=== PATIENT | female | born 1990 | race Caucasian/White ===

== ENCOUNTER 2021-12-26 15:22 | Outpatient (CLI) | payer OTHER, SELFPAY ==
[2021-12-27 09:12] LABS: HIV - WCH Non-Reactive (Nonreactive); Syphilis Antibodies Non-reactive
[2021-12-28 14:08] LABS: HSV 2 IgG 5.89 index (0.00-0.90)
[2021-12-29 00:07] LABS: Chlamydia By Nucleic Acid AMP Negative (Negative)
[2021-12-29 18:37] LABS: Gonococcus By Nucleic Acid AMP Negative (Negative)
[2022-01-01 12:32] LABS: HPV Reflexed? NOT INDICATED
== END 2021-12-26 23:59 | disposition home or self-care (01) ==
PROVIDERS: PCP Nurse Practitioner Primary Care; Referring Provider Nurse Practitioner Women's Health; Visit Provider Nurse Practitioner Women's Health
DX: Z20.2 Contact with and (suspected) exposure to infections with a predominantly sexual mode of transmission (principal); Z12.4 Encounter for screening for malignant neoplasm of cervix
CPT/HCPCS: 36415; 86695; 86696; 86703; 86780; 87491; 87591; 88175; G0145

== ENCOUNTER → 2025-04-08 | Outpatient (CLI) | payer OTHER, SELFPAY ==
[2025-04-14 12:09] LABS: Cotinine Screen Blood <1.0 ng/mL (.)
== END | disposition home or self-care (01) ==
PROVIDERS: PCP Nurse Practitioner Primary Care; Referring Provider Registered Nurse; Visit Provider Registered Nurse
DX: Z00.00 Encounter for general adult medical examination without abnormal findings (principal)
CPT/HCPCS: 80323; G0480

== ENCOUNTER → 2025-07-21 | Outpatient (CLI) | payer OTHER, SELFPAY ==
--- OUTSIDE RECORDS SUMMARY | 2025-07-21 16:34 | XMS RPT_ITS | CCD ---
Author Organization [facility] Care Team Providers Care Manager Information Name Role Phone LIS CLINICAL DIETETIC TECHNICIAN-BLUEPRINT ENGINEER, TEQUILA Primary Care Physician SARITHA CHASE DO Attending Unavailable BALTES CLINICAL DIETETIC TECHNICIAN-BLUEPRINT ENGINEER, TEQUILA Primary Care Unavailabl e AMANDA VARMA DO Attending Unavailable BALTES CLINICAL DIETETIC TECHNICIAN-BLUEPRINT ENGINEER, TEQUILA Primary Care Unavailabl e BALTES CLINICAL DIETETIC TECHNICIAN-BLUEPRINT ENGINEER, TEQUILA Primary Care Unavailabl e AMANDA VARMA DO Attending Unavailable Lis CONTRACT COORDINATOR-C, Tequila Primary Care Provider [phone] Anastacio CONTRACT COORDINATOR-C, Jack Attending Provider [phone] Anastacio CONTRACT COORDINATOR-CJack Referring Provider BGTES CLINICAL DIETETIC TECHNICIAN-ABIGAIL, TEQUILA Attending Unavailabl e BALTES CLINICAL DIETETIC TECHNICIAN-BLUEPRINT ENGINEER, TEQUILA Primary Care Unavailleif e Tuyet CONTRACT COORDINATORElizabeth Attending Unavailable Baltes CONTRACT COORDINATOR, Tequila Primary Care Unavailable Baltes CONTRACT COORDINATOR, Tequila Referring Unavailable Jack Chaves Attending Unavailable Jack Chaves Referring Unavailable Lis CONTRACT COORDINATOR, Tequila Primary Care Unavailable Assessment, Health Risk Attending Unavaila ble Lis CONTRACT COORDINATOR, Tequila Primary Care Unavailable Allergies Allergy Classification Reported Allergen(s) Allergy Type Date of Onset Reaction(s) Facility (4 sources) Amoxicillin; Translations: [amoxicillin] Drug Allergy 2 [facility] (3 sources) Sulfamethoxazole / Trimethoprim; Translations: [sulfamethoxazole-tr imethoprim] Drug Allergy [facility] (1 source) Sulfamethoxazole Drug Allergy 2 [facility] (1 source) Trimethoprim Drug Allergy 2 [facility] (1 source) Amoxicillin Drug Allergy 2 [facility] (1 source) Sulfamethoxazole Drug Allergy 2 [facility] (1 source) Trimethoprim Drug Allergy 2 [facility] Medications Current Medications Medication Drug Class(es) Dates Sig (Normalized) Sig (Original) acetaminophen 500 mg oral tablet (1 source) Start: 07-17-2024 acetaminophen 500 mg oral tablet Dose : 1,000 mg = 2 tab(s), Oral, TID, PRN pain or fever, 0 Refill(s) Start Date: 07/17/24 Status: Ordered Medication Dispense Status: Completed Total Allowed Fills: 1 Fills Dispensed: 0 acetaminophen 250 mg / aspirin 250 mg / caffeine 65 mg oral tablet (1 source) Platelet Aggregation Inhibitor, Nonsteroidal Anti-inflammatory Drug, Central Nervous System Stimulant, Methylxanthine Start: 07-17-2024 take 1 tablet by mouth every six hours as needed for headache Excedrin Extra Strength oral tab (250/250/65) Dose = 1 tab(s), Oral, q6h, PRN for headache/fever, 0 Refill(s) Start Date: 07/17/24 Status: Ordered Medication Dispense Status: Completed Total Allowed Fills: 1 Fills Dispensed: 0 acetaminophen 325 mg / oxyCODONE hydrochloride 5 mg oral tablet (1 source) Opioid Agonist Start: 06-09-2023 End: 06-14-2023 take 1 tablet by mouth every four hours as needed for pain Percocet 5 mg-325 mg oral tablet Dose = 1 tab(s), Oral, q4h, PRN for pain, X 5 day(s), # 30 tab(s), 0 Refill(s), Wrist fracture, right, 61.4 Start Date: 06/09/23 Stop Date: 06/14/23 Status: Ordered Multivitamin With Minerals (Hair,Skin And Nails) tablet (1 source) Start: 12-26-2021 Multivitamin With Minerals (Hair,Skin And Nails) tablet Active 1 {tbl} PO DAILY December 26, 2021 12:00am SUMAtriptan 50 mg oral tablet (3 sources) Serotonin-1b and Serotonin-1d Receptor Agonist Start: 12-26-2021 take 1 tablet by mouth every two hours Sumatriptan Succinate (Imitrex) 50 mg tablet Active 0 PO .COMPLEX December 26, 2021 12:00am take 1 tab at onset of headache; if no relief may repeat 1 tab after at least 2 hrs; max = 4 tabs/24 hr PO Start: 06-03-2019 take 1 tablet by mouth once RODRÍGUEZ MAtriptan 50 mg oral tablet TAKE 1 TABLET BY MOUTH ONCE Start Date: 06/03/19 Status: Ordered Problems Problem Classification Problem Date Documented Da te Episodic/Chronic Anxiety disorders (1 source) Anxiety 05-26-2025 Chronic Asthma (3 sources) Asthma 04-23-2019 Chronic Esophageal disorders (3 sources) Acid reflux 04-23-2019 Chronic Fracture of upper limb (1 source) Closed fracture of carpal bone; Translations: [Fracture of unspecified carpal bone, right wrist, initial encounter for closed fracture] Onset: 06-09-2023 Episodic Headache; including migraine (3 sources) Migraine 04-23-2019 Chronic Mood disorders (1 source) Major depressive disorder 05-26-2025 Chronic Results Test Name Value Interpretation Reference Range Facility LABORATORYOrdered By: SYSTEM SYSTEM on 06-13-2025 TSH Qn 2.75 m[IU]/L Normal 0.36 - 3.74 mcIU/mL AO ADM SS TSHon 06-13-2025 TSH Qn 2.75 m[IU]/L Normal 0.36-3.74 [facility] Comment on above: Performed By: #### T #### [facility] [address] [place] [address] Nicotine Screen Bloodon 03-31 COTININE BLOOD <1.0 Normal . [facility] Comment on above: Result Comment: This test was developed and its performance characteristics determined by [facility]. It has not been cleared or approved by the Food and Drug Administration. Cotinine levels greater than 20.0 are consistent with the use of tobacco or tobacco cessation products. Performed at: [address] [id number] Director Process Engineering: Delroy Rico MD, Phone: [phone] Performed By: #### L [id number] #### [facility] [address] [place], [place], [address] NICOTINE BLOOD <1.0 Normal . [facility] Comment on above: Result Comment: This test was developed and its performance characteristics determined by [facility]. It has not been cleared or approved by the Food and Drug Administration. Nicotine levels greater than 2.0 are consistent with the use of tobacco or tobacco cessation products. Performed By: #### L 3600.3400 #### [facility] [address] [place], [address] Serum or plasma nicotine jenna surement (mass/volume)Ordered By: Jack Chaves on 04-08-2025 Nicotine [Mass/Vol] <1.0 ug/mL . [facility] Comment on above: This test was develo ped and its performance characteristicsdetermined by [facility]. It has not been cleared orapproved by the Food and Drug Administration.Nicotine levels greater than 2.0 are consistent with theuse of tobacco or tobacco cessation products. CBC-Complete Blood Cnt No Di ffon 11-11-2024 Erythrocyte distribution width (RBC) [Ratio] 11.9 % Normal 11.6-14.6 [facility] Comment on above: Performed By: #### L [id number], L500.4100, L100.0500, L500.4050 #### [facility] [address] [place], [address] Hematocrit (Bld) [Volume fraction] 42.0 % Normal 37-47 [facility] Comment on above: Performed By: #### L [id number], L500.4100, L100.0500, L500.4050 #### [facility] [address] [place], [address] Hemoglobin (Bld) [Mass/Vol] 14.6 g/dL Normal 12.0-15.0 [facility] Comment on above: Performed By: #### L [id number], L500.4100, L100.0500, L500.4050 #### [facility] [address] [place], [address] MCH (RBC) [Entitic mass] 32.2 pg High 27.0-32.0 [facility] Comment on above: Performed By: #### L [id number], L500.4100, L100.0500, L500.4050 #### [facility] [address] [place], [address] MCHC (RBC) [Mass/Vol] 34.8 g/dL Normal 32-36 [facility] Comment on above: Performed By: #### L [id number], L500.4100, L100.0500, L500.4050 #### [facility] [address] [place], [address] MCV (RBC) [Entitic vol] 92.7 fL Normal 81-99 [facility] Comment on above: Performed By: #### L [id number], L500.4100, L100.0500, L500.4050 #### [facility] [address] [place], [address] Platelet mean volume (Bld) [Entitic vol] 10.6 fL Normal 6.2-12.0 [facility] Comment on above: Performed By: #### L [id number], L500.4100, L100.0500, L500.4050 #### [facility] [address] [place], [address] Platelets (Bld) [#/Vol] 255 10*3/uL Normal 150-450 [facility] Comment on above: Performed By: #### L [id number], L500.4100, L100.0500, L500.4050 #### [facility] [address] [place], [address] RBC (Bld) [#/Vol] 4.53 10*6/uL Normal 4.2-5.4 [facility] Comment on above: Performed By: #### L [id number], L500.4100, L100.0500, L500.4050 #### [facility] [address] [place], [address] RDW SD 40.4 fl Normal 35.1-43.9 [facility] Comment on above: Performed By: #### L [id number], L500.4100, L100.0500, L500.4050 #### [facility] [address] [place], [address] WBC (Bld) [#/Vol] 6.5 10*3/uL Normal 4.4-11.0 [facility] Comment on above: Performed By: #### L [id number], L500.4100, L100.0500, L500.4050 #### [facility] [address] [place], [address] Comprehensive Metabolic Prof ilon 11-11-2024 Albumin [Mass/Vol] 4.3 g/dL Normal 3.2-5.0 [facility] Comment on above: Performed By: #### L [id number], L500.4100, L100.0500, L500.4050 #### [facility] [address] [place], [address] Albumin/Globulin [Mass ratio] 1.2 {ratio} Normal 0.9-2.4 [facility] Comment on above: Performed By: #### L [id number], L500.4100, L100.0500, L500.4050 #### [facility] [address] [place], [address] ALK P 49 U/L Normal 45-117 [facility] Comment on above: Performed By: #### L [id number], L500.4100, L100.0500, L500.4050 #### [facility] [address] [place], [address] ALT [Catalytic activity/Vol] 26 U/L Normal 13-56 [facility] Comment on above: Performed By: #### L [id number], L500.4100, L100.0500, L500.4050 #### [facility] [address] [place], [address] AST [Catalytic activity/Vol] 13 U/L Low 15-37 [facility] Comment on above: Performed By: #### L [id number], L500.4100, L100.0500, L500.4050 #### [facility] [address] [place], [address] Bilirubin [Mass/Vol] 0.40 mg/dL Normal 0.20-1.00 [facility] Comment on above: Result Comment: For patients on eltrombopag therapy, use of Dimension Geyser TBIL is not recommended. Performed By: #### L [id number], L500.4100, L100.0500, L500.4050 #### [facility] [address] [place], [address] BUN/CRE 19.1 RATIO Normal 10-20 [facility] Comment on above: Performed By: #### L [id number], L500.4100, L100.0500, L500.4050 #### [facility] [address] [place], [address] CA,Total 9.4 mg/dL Normal 8.5-10.1 [facility] Comment on above: Performed By: #### L 501.9985, L500.4100, L100.0500, L500.4050 #### [facility] [address] [place], [address] Chloride [Moles/Vol] 104 mmol/L Normal 98-107 [facility] Comment on above: Performed By: #### L [id number], L500.4100, L100.0500, L500.4050 #### [facility] [address] [place], [address] CO2 [Moles/Vol] 26.0 mmol/L Normal 21.0-32.0 [facility] Comment on above: Performed By: #### L 501.9985, L500.4100, L100.0500, L500.4050 #### [facility] [address] [place], [address] Creatinine [Mass/Vol] 0.79 mg/dL Normal 0.55-1.02 [facility] Comment on above: Result Comment: The validity of the calculated GFR GFRAA in patients over 70 years has not been determined. Clinical correlation is essential. Performed By: #### L [id number], L500.4100, L100.0500, L500.4050 #### [facility] [address] [place], [address] EST GFR - AA 109 mL/min Normal >60 [facility] Comment on above: Result Comment: Afri can Algerian GFR Calc Performed By: #### L 501.9985, L500.4100, L100.0500, L500.4050 #### [facility] [address] [place], [address] GAP 8 Normal 5-15 [facility] Comment on above: Performed By: #### L 501.9985, L500.4100, L100.0500, L500.4050 #### [facility] [address] [place], [address] GFR/1.73 sq M.predicted among non-blacks MDRD (S/P/Bld) [Vol rate/Area] 90 mL/min/{1.73_m2} Normal >60 [facility] Comment on above: Result Comment: Non- GFR Calc Performed By: #### L 501.9985, L500.4100, L100.0500, L500.4050 #### [facility] [address] [place], [address] Globulin (S) [Mass/Vol] 3.5 g/dL Normal 2.2-4.2 [facility] Comment on above: Performed By: #### L 501.9985, L500.4100, L100.0500, L500.4050 #### [facility] [address] [place], [address] Glucose [Mass/Vol] 94 mg/dL Normal 74-106 [facility] Comment on above: Performed By: #### L 501.9985, L500.4100, L100.0500, L500.4050 #### [facility] [address] [place], [address] Potassium [Moles/Vol] 4.4 mmol/L Normal 3.5-5.1 [facility] Comment on above: Performed By: #### L 501.9985, L500.4100, L100.0500, L500.4050 #### [facility] [address] [place], [address] Sodium [Moles/Vol] 138 mmol/L Normal 136-145 [facility] Comment on above: Performed By: #### L [id number], L500.4100, L100.0500, L500.4050 #### [facility] [address] [place], [address] T PROT 7.8 g/dL Normal 6.4-8.2 [facility] Comment on above: Performed By: #### L 501.9985, L500.4100, L100.0500, L500.4050 #### [facility] [address] [place], [address] Urea nitrogen [Mass/Vol] 15 mg/dL Normal 7-18 [facility] Comment on above: Performed By: #### L 501.9985, L500.4100, L100.0500, L500.4050 #### [facility] [address] [place], [address] Hemoglobin A1con 11-11-2024 HbA1c (Bld) [Mass fraction] 5.2 % Normal 3.8-5.6 [facility] Comment on above: Result Comment: Norm al < 5.7 % Prediabetic 5.7 - 6.4 % Diabetic >or= 6.5 % Please note range changes. Performed By: #### L [id number], L500.4100, L100.0500, L500.4050 #### [facility] [address] [place], [address] Lipid Profileon 11-11-2024 Cholesterol [Mass/Vol] 219 mg/dL High 200 [facility] Comment on above: Result Comment: <200 mg/dL Desirable 200-240 mg/dL Borderline >240 mg/dL High Risk Performed By: #### L [id number], L500.4100, L100.0500, L500.4050 #### [facility] [address] [place], [address] Cholesterol in HDL [Mass/Vol] 50 mg/dL Normal [facility] Comment on above: Result Comment: The drugs N-Acetylcysteine and Metamizole may falsely depress this assay. Reference Range HDL <40 mg/dL Low HDL Cholesterol HDL >or= 60 mg/dL High HDL Cholesterol Performed By: #### L 501.9985, L500.4100, L100.0500, L500.4050 #### [facility] [address] [place], [address] Cholesterol in LDL [Mass/Vol] 137 mg/dL High 0-130 [facility] Comment on above: Performed By: #### L 501.9985, L500.4100, L100.0500, L500.4050 #### [facility] [address] [place], [address] Cholesterol in VLDL [Mass/Vol] 32 mg/dL Normal 5-40 [facility] Comment on above: Performed By: #### L [id number], L500.4100, L100.0500, L500.4050 #### [facility] [address] [place], [place], [address] Triglyceride [Mass/Vol] 161 mg/dL Normal [facility] Comment on above: Result Comment: The drugs N-Acetylcysteine and Metamizole may falsely depress this assay. Serum Triglycerides Reference Interval Normal <150 mg/dL Borderline high 150 - 199 mg/dL High 200 - 499 mg/dL Very High > or = 500 mg/dL Performed By: #### L [id number], L500.4100, L100.0500, L500.4050 #### [facility] [address] [place], [place], [address] CT WRIST W/O CONTRAST RIGHTo n 06-18-2023 CT WRIST W/O CONTRAST RIGHT ORIGINAL EXAMINATION: CT OF THE RIGHT WRIST WITHOUT CONTRAST 06/18/2023 7:48 am TECHNIQUE: CT of the right wrist was performed without the administration of intravenous contrast. Multiplanar reformatted images are provided for review. Automated exposure control, iterative reconstruction, and/or weight based adjustment of the mA/kV was utilized to reduce the radiation dose to as low as reasonably achievable. COMPARISON: None. HISTORY ORDERING SYSTEM PROVIDED HISTORY: Reason for Exam: NONDISPLACED FRACTURE OF R RADIAL STYLOID PROCESS FRACTURES OF LOWER END OF R RADIUS Distal rt radius fx s/p fall 06/09/23. FINDINGS: A comminuted distal radius fracture is again demonstrated. There is a predominant transverse component through the neck with 5 mm dorsal displacement of the main distal fracture fragment, 3 mm impaction, and mild apex volar angulation. A longitudinal fracture line extends to the articular surface where there is up to 1 mm step-off and a 1.5 mm diastasis. There is a minimally displaced fracture of the ulnar styloid. There are no other acute fractures. There is mild soft tissue swelling IMPRESSION: Comminuted distal radius fracture with intra-articular extension. Minimally displaced ulnar styloid fracture. Interpreted by: Luiz Chow Preliminary Report By: Luiz Chow Electronically signed By Luiz Chow Dictated Date: 06/18/2023 2:52:52 PM Prelim Date: 06/18/2023 3:01:34 PM Sign Date: 06/18/2023 3:01:34 PM Ordering Provider: AMANDA Sherman [facility] [place] XR HAND AND WRIST 6 VIEWS GOOD Parkinson 06-09-2023 XR HAND AND WRIST 6 VIEWS RIGHT ORIGINAL EXAMINATION: 6 XRAY VIEWS OF THE right upper EXTREMITY 06/09/2023 4:46 pm COMPARISON: None. HISTORY: ORDERING SYSTEM PROVIDED HISTORY: Reason for Exam: fall FINDINGS: There is a comminuted fracture of the distal radius. There is intra-articular extension. There is impaction and dorsal displacement of the main distal fracture fragment. There is volar angulation of the fracture apex. There is also a relatively nondisplaced fracture of the ulnar styloid. No additional fractures or gross dislocation. No significant degenerative change. There is soft tissue swelling and deformity of the wrist. No unexpected radiopaque foreign body. IMPRESSION: 1. Comminuted, impacted, displaced and angulated fracture of the distal radius. Soft tissue swelling. 2. Relatively nondisplaced ulnar styloid fracture. Interpreted by: Monet Jung MD Preliminary Report By: Monet Jung MD Electronically signed By Monet Jung MD Dictated Date: 06/09/2023 4:55:09 PM Prelim Date: 06/09/2023 4:58:57 PM Sign Date: 06/09/2023 4:58:57 PM Ordering Provider: SARITHA Sherman [facility] [place] Vital Signs Date Time Vital Sign Value Performing Clinician Vadim anaya 06-09-2023 17:28-0400 Diastolic Blood Pressure Non-Invasive 86 1 SARITHA CHASE DO [facility] 06-09-2023 17:28-0400 Heart rate 81 /min SARITHA CHASE DO [facility] 06-09-2023 17:28-0400 Respiratory rate 25 /min SARITHA CHASE DO [facility] 06-09-2023 17:28-0400 Systolic Blood Pressure Non-Invasive 124 1 SARITHA CHASE DO [facility] 06-09-2023 16:28-0400 Body temperature 98.06 [degF] SARITHA CHASE DO [facility] 06-09-2023 16:28-0400 Diastolic Blood Pressure Non-Invasive 87 1 SARITHA CHASE DO [facility] 06-09-2023 16:28-0400 Heart rate 77 /min SARITHA CHASE DO [facility] 06-09-2023 16:28-0400 Respiratory rate 26 /min SARITHA CHASE DO [facility] 06-09-2023 16:28-0400 Systolic Blood Pressure Non-Invasive 118 1 SARITHA CHASE DO [facility] Encounters Encounter Date Encounter Type Care Provider Facility Start: 07-21-2025 ambulatory Elizabeth Benz CONTRACT COORDINATOR Facil ity:[facility] Start: 06-13-2025 End: 06-13-2025 ambulatory TEQUILA HAYS CLINICAL DIETETIC TECHNICIAN-BLUEPRINT ENGINEER Facility:[facility] Start: 06-13-2025 End: 06-13-2025 Patient encounter procedure TEQUILA HAYS CLINICAL DIETETIC TECHNICIAN-BLUEPRINT ENGINEER [facility] Start: 04-14-2025 Encounter for genera l adult medical examination without abnormal findings Jackgail Chaves [facility] Start: 04-08-2025 End: 04-08-2025 ambulatory Tequila Hays CONTRACT COORDINATOR-C Work Phone: -Laboratory Specimen Start: 04-08-2025 End: 04-08-2025 Patient encounter procedure Jack Chaves CONTRACT COORDINATOR-C -Laboratory Specimen Work Phone: Start: 04-08-2025 End: 04-08-2025 ambulatory Jack Chaves Facility:[facility] Start: 11-11-2024 ambulatory Health Risk Assessment Facility:[facility] Start: 07-03-2023 End: 09-10-2023 ambulatory TEQUILA HAYS CLINICAL DIETETIC TECHNICIAN-BLUEPRINT ENGINEER Facility:[facility] Start: 06-18-2023 End: 06-19-2023 ambulatory AMANDA VARMA DO Facility:[facility] Start: 06-18-2023 End: 06-18-2023 Patient encounter procedure AMANDA VARMA DO [facility] Start: 06-09-2023 End: 06-09-2023 Emergency department patient visit SARITHA CHASE DO Facility:[facility] Start: 06-09-2023 End: 06-09-2023 Emergency department patient visit SARITHA CHASE DO [facility] Procedures Date Procedure Procedure Detail Performing Clinician Start: 04-08-2025 Cotinine measurement Tequila Hays CONTRACT COORDINATOR-C Work Phone: Comment on above: This test was developed and its performa nce characteristicsdetermined by [facility] [employer]. It has not been cleared orapproved by the Food and Drug Administration.Cotinine levels greater than 20.0 are consistent with theuse of tobacco or tobacco cessation products.Performed at: [address] [id number] Director: Delroy Rico MD, Phone: [phone] Start: 06-01-2024 Structure of right wrist (body structure) TEQUILA HAYS CLINICAL DIETETIC TECHNICIAN-BLUEPRINT ENGINEER Comment on above: fx in 7 places, plate placed Start: 01-02-2011 Cholecystectomy SARITHA CHASE DO Comment on above: Dr Willoughby Payers Date Payer Category Payer Private Health Insurance [id number] 2024 Self-pay 2023 Private Health Insurance [id number] 2023 Unknown [id number] 2023 Private Health Insurance [id number] 2011 Unknown [id number] 1992 Unknown [id number] 2.16.8 [id number] 1992 Unknown [id number] 2.16.8 [id number] 1992 Unknown [id number] 2.16.8 [id number] 1992 Unknown [id number] 2.16. [id number] Self-pay [id number] Unknown [id number] Unknown [id number] 2.16.8 [id number] Unknown [id number] 2.16.8 [id number] Unknown [id number] 2.16.8 [id number] Social History Date Type Detail Facility Start: 04-23-2019 Tobacco smoking status Smoker (findi ng[facility] Start: 1990 Sex Assigned At Female [facility] Start: 12-26-2021 Tobacco smoking stat [facility] Smokes tobacco daily (finding) [facility] Start: 06-10-2025 Tobacco smoking status Ex-smoker (fi nding) [facility] [place] Comment on above: Qut smoking 03/03/2025 [facility] Start: 03-26-2019 Sex Female (finding) [facility] Functional Status Date Assessment Result Facility 06-09-2023 Functional Status [facility] 06-09-2023 Functional Status Ambulation in [facility] Mental Status Date Assessment Result Facility 06-09-2023 Mental Status Orientation Oriented x 4 [facility] Clinical Note 06-18-2023 Note Date & Type Note Facility 06-18-2023 Note ORIGINAL EXAMINATION: CT OF THE RIGHT WRIST WITHOUT CONTRAST 06/18/2023 7:48 am TECHNIQUE: CT of the right wrist was performed without the administration of intravenous contrast. Multiplanar reformatted images are provided for review. Automated exposure control, iterative reconstruction, and/or weight based adjustment of the mA/kV was utilized to reduce the radiation dose to as low as reasonably achievable. COMPARISON: None. HISTORY ORDERING SYSTEM PROVIDED HISTORY: Reason for Exam: NONDISPLACED FRACTURE OF R RADIAL STYLOID PROCESS FRACTURES OF LOWER END OF R RADIUS Distal rt radius fx s/p fall 06/09/23. FINDINGS: A comminuted distal radius fracture is again demonstrated. There is a predominant transverse component through the neck with 5 mm dorsal displacement of the main distal fracture fragment, 3 mm impaction, and mild apex volar angulation. A longitudinal fracture line extends to the articular surface where there is up to 1 mm step-off and a 1.5 mm diastasis. There is a minimally displaced fracture of the ulnar styloid. There are no other acute fractures. There is mild soft tissue swelling IMPRESSION: Comminuted distal radius fracture with intra-articular extension. Minimally displaced ulnar styloid fracture. Interpreted by: Luiz Chow Preliminary Report By: Luiz Chow Electronically signed By Luiz Chow Dictated Date: 06/18/2023 2:52:52 PM Prelim Date: 06/18/2023 3:01:34 PM Sign Date: 06/18/2023 3:01:34 PM Ordering Provider: AMANDA VARMA [facility] Discharge instructions 06-09-2023 Note Date & Type Note Facility 06-09-2023 Hospital Discharg e instructions Patient Education 06/09/2023 17:15:11 Understanding a Distal Radius Fracture Understanding a Distal Radius Fracture A fracture is a broken bone. A fracture in the distal radius is a break in the lower end of the radius. This is the larger bone in the forearm. Because the break occurs near the wrist, it is often called a wrist fracture. The bone may be cracked, or it may be broken into 2 or more pieces. The pieces of bone may be lined up or they may have moved out of place. Sometimes, the bone may break through the skin. Nearby nerves, tissues, and joints also may be damaged. Depending on the severity of the fracture, healing may take several months or longer. What causes a distal radius fracture? This type of fracture is most often caused from a fall on an outstretched hand. It can also be caused from a blow, accident, or sports injury. Symptoms of a distal radius fracture Symptoms can include pain, swelling, and bruising. If the bone breaks through the skin, external bleeding can also occur. The wrist may look crooked, deformed, or bent. It may be hard to move or use the arm, wrist, and hand for normal tasks and activities. Treating a distal radius fracture Treatment depends on how serious the fracture is. If needed, the bone is put back into place. This may be done with or without surgery. If surgery is needed, the surgeon may use devices such as pins, plates, or screws to hold the bone together. You may need to wear a splint or cast for a month or longer to protect the bone and keep it in place during healing. Other treatments may be also used to help reduce symptoms or regain function. These include: Cold packs. Putting an ice pack on the injured area may help reduce swelling and pain. Raising the arm and wrist. Keeping the arm and wrist raised above heart level may help reduce swelling. Pain medicines. Taking prescription or nvjq-hoc-sfebdmi pain medicines may help reduce pain and swelling. Exercises. Doing certain exercises at home or with a physical therapist can help restore strength, flexibility, and range of motion in your arm, wrist, and hand. In general, exercises are not started until after the splint or cast is removed. Possible complications of a distal radius fracture These can include: Poor healing of the bone Weakness, stiffness, or loss of range of motion in the arm, wrist, or hand Osteoarthritis in the wrist joint When to call your healthcare provider Call your healthcare provider right away if you have any of these: Fever of 100.4 F (38 C) or higher, or as directed Symptoms that don t get better with treatment, or get worse Numbness, coldness, or swelling in your arm, hand, or fingers Fingernails that turn blue or pollard in color A splint or cast that is damaged or feels too tight or loose New symptoms 1702-4692 [employer] [address] [place] [address]. All rights reserved. This information is not intended as a substitute for professional medical care. Always follow your healthcare professional's instructions. 06/09/2023 17:15:10 Fracture, Wrist, General Wrist Fracture, General You have a broken bone (fracture) in your wrist. This may be a small crack or chip in the bone. Or it may be a major break, with the broken parts pushed out of position. Wrist fractures are often treated with a splint or cast. They take about 4 to 6 weeks to heal. Severe injuries may need surgery. Home care Follow these guidelines when caring for yourself at home: Keep your arm elevated to reduce pain and swelling. When sitting or lying down keep your arm above the level of your heart. You can do this by placing your arm on a pillow that rests on your chest or on a pillow at your side. This is most important during the first 2 days (48 hours) after the injury. Put an ice pack on the injured area. Do this for 20 minutes every 1 to 2 hours the first day for pain relief. You can make an ice pack by wrapping a plastic bag of ice cubes in a thin towel. As the ice melts, be careful that the cast or splint doesn t get wet. Continue using the ice pack 3 to 4 times a day for the next 2 days. Then use the ice pack as needed to ease pain and swelling. Keep the cast or splint completely dry at all times. Bathe with your cast or splint out of the water. Protect it with a large plastic bag, rubber-banded or taped at the top end. If a fiberglass cast or splint gets wet, you can dry it with a hairspring truer on a cool setting. You may use acetaminophen or ibuprofen to control pain, unless another pain medicine was prescribed. If you have chronic liver or kidney disease, talk with your healthcare provider before using these medicines. Also talk with your provider if you ve had a stomach ulcer or gastrointestinal bleeding. Don t put creams, lotions, or objects under the cast. Follow-up care Follow up with your healthcare provider as advised. This is to make sure the bone is healing the way it should. If a splint was put on, it may be changed to a cast during your follow-up visit. A cast may need to be changed at 2 to 3 weeks, as the swelling goes down. If X-rays were taken, a radiologist may look at them. You will be told of any new findings that may affect your care. When to seek medical advice Call your healthcare provider right away if any of these occur: The plaster cast or splint becomes wet or soft The cast or splint cracks Bad odor from the cast or wound fluid stains the cast The fiberglass cast or splint stays wet for more than 24 hours Tightness or pain under the cast or splint gets worse Fingers become swollen, cold, blue, numb, or tingly You can t move your fingers Skin around cast becomes red, swollen, or irritated 1201-3769 [employer] [address] [place] [address], [place] [address]. All rights reserved. This information is not intended as a substitute for professional medical care. Always follow your healthcare professional's instructions. Follow Up Care 06/09/2023 16:11:01 With:ANGEL DELGADILLO MD, Orthopedic Address: [address] [place] [address] [facility] [place] [address] [phone] When:1-2 days With:TEQUILA HAYS Address: [address] [place] [id number] [phone] When:2-4 days [facility] Clinical Note 06-09-2023 Note Date & Type Note Facility 06-09-2023 Note Discharge Instructions Thank you for allowing [facility] to assist you with your healthcare needs. The following is important discharge information regarding your hospital visit. Diagnosis from Today's Visit Wrist fracture, right Wrist pain-swelling What to Do Next Instructions from Your Care Team No qualifying data available. Post Acute Orders No qualifying data available. You Need to Schedule the Following Appointments Follow Up with ANGEL DELGADILLO MD, Orthopedic When Within 1-2 days Where: [address] [place] [address] [facility] [place] [address] [phone] Follow Up with TEQUILA HAYS When Within 2-4 days Where: [address] [place] [id number] [phone] Allergies Septra amoxicillin Medications Please ask your primary doctor or pharmacist before taking any other medication not listed, including over the counter drugs, herbal medications, vitamins and or supplements as they may interact with your home medications. What How Much When Why Instructions Last Dose New acetaminophen-oxyCODONE (Percocet 5 mg-325 mg oral tablet) 1 tab(s) by mouth Every 4 hours as needed for for pain Wrist fracture, right Duration: 5 Days Printed Prescription Unchanged SUMAtriptan (SUMAtriptan 50 mg oral tablet) TAKE 1 TABLET BY MOUTH ONCE Please take this list to your next doctor s visit. Bring all medications you take, including over the counter medications, herbals and other supplements with you to your doctor s visit. Patients and families are reminded to discard old lists and to update any records with all medication providers or retail pharmacies. Medication Leaflets acetaminophen and oxycodone (a SEET a MIN oh fen and OX i KOE done) Endocet 10/325, Endocet 2.5/325, Endocet 5/325, Endocet 7.5/325, Nalocet, Percocet, Prolate What is the most important information I should know about acetaminophen and oxycodone? MISUSE OF OPIOID MEDICINE CAN CAUSE ADDICTION, OVERDOSE, OR . Keep the medication in a place where others cannot get to it. Taking opioid medicine during may cause life-threatening withdrawal symptoms in the . Fatal side effects can occur if you use opioid medicine with alcohol, or with other drugs that cause drowsiness or slow your breathing. Stop taking this medicine and call your doctor right away if you have skin redness or a rash that spreads and causes blistering and peeling. What is acetaminophen and oxycodone? Acetaminophen and oxycodone is a combination medicine used to relieve moderate to severe pain. Acetaminophen and oxycodone contains an opioide medicine and may be habit-forming. Acetaminophen and oxycodone may also be used for purposes not listed in this medication guide. What should I discuss with my healthcare provider before taking acetaminophen and oxycodone? You should not use this medicine if you are allergic to acetaminophen or oxycodone, or if you have: severe asthma or breathing problems; or a blockage in your stomach or intestines. Tell your doctor if you have ever had: breathing problems, sleep apnea; liver disease; a drug or alcohol addiction; kidney disease; a head injury or seizures; urination problems; or problems with your thyroid, pancreas, or gallbladder. If you use opioid medicine while you are , your baby could become dependent on the drug. This can cause life-threatening withdrawal symptoms in the baby after it is born. Babies born dependent on opioids may need medical treatment for several weeks. Ask a doctor before using opioid medicine if you are . Tell your doctor if you notice severe drowsiness or slow breathing in the nursing baby. How should I take acetaminophen and oxycodone? Follow all directions on your prescription label. Never take this medicine in larger amounts, or for longer than prescribed. An overdose can damage your liver or cause . Tell your doctor if you feel an increased urge to use more of this medicine. Never share opioid medicine with another person, especially someone with a history of drug abuse or addiction. MISUSE CAN CAUSE ADDICTION, OVERDOSE, OR . Keep the medicine in a place where others cannot get to it. Selling or giving away opioid medicine is against the law. Measure liquid medicine carefully. Use the dosing syringe provided, or use a medicine dose-measuring device (not a kitchen spoon). If you need surgery or medical tests, tell the doctor ahead of time that you are using this medicine. You should not stop using this medicine suddenly. Follow your doctor's instructions about tapering your dose. Store at room temperature away from moisture and heat. Keep track of your medicine. You should be aware if anyone is using it improperly or without a prescription. Do not keep leftover opioid medication. Just one dose can cause in someone using this medicine accidentally or improperly. Ask your pharmacist where to locate a drug take-back disposal program. If there is no take-back program, flush the unused medicine down the toilet. What happens if I miss a dose? Since this medicine is used for pain, you are not likely to miss a dose. Skip any missed dose if it is almost time for your next dose. Do not use two doses at one time. What happens if I overdose? Seek emergency medical attention or call the Poison Help line at . An overdose of this medicine can be fatal, especially in a child or other person using the medicine without a prescription. Overdose symptoms may include nausea, vomiting, sweating, severe drowsiness, pinpoint pupils, slow breathing, or no breathing. Your doctor may recommend you get naloxone (a medicine to reverse an opioid overdose) and keep it with you at all times. A person caring for you can give the naloxone if you stop breathing or don't wake up. Your caregiver must still get emergency medical help and may need to perform CPR (cardiopulmonary resuscitation) on you while waiting for help to arrive. Anyone can buy naloxone from a pharmacy or local health department. Make sure any person caring for you knows where you keep naloxone and how to use it. What should I avoid while taking acetaminophen and oxycodone? Avoid driving or operating machinery until you know how this medicine will affect you. Dizziness or drowsiness can cause falls, accidents, or severe injuries. Do not drink alcohol. Dangerous side effects or could occur. Ask a doctor or pharmacist before using any other medicine that may contain acetaminophen (sometimes abbreviated as APAP). Taking certain medications together can lead to a fatal overdose. What are the possible side effects of acetaminophen and oxycodone? Get emergency medical help if you have signs of an allergic reaction: hives; difficulty breathing; swelling of your face, lips, tongue, or throat. Opioid medicine can slow or stop your breathing, and may occur. A person caring for you should give naloxone and/or seek emergency medical attention if you have slow breathing with long pauses, blue colored lips, or if you are hard to wake up. In rare cases, acetaminophen may cause a severe skin reaction that can be fatal. This could occur even if you have taken acetaminophen in the past and had no reaction. Stop taking this medicine and call your doctor right away if you have skin redness or a rash that spreads and causes blistering and peeling. Call your doctor at once if you have: noisy breathing, sighing, shallow breathing, breathing that stops; a light-headed feeling, like you might pass out; weakness, tiredness, fever, unusual bruising or bleeding; confusion, unusual thoughts or behavior; problems with urination; liver problems--nausea, upper stomach pain, tiredness, loss of appetite, dark urine, dunia-colored stools, jaundice (yellowing of the skin or eyes); low cortisol levels-- nausea, vomiting, loss of appetite, dizziness, worsening tiredness or weakness; or high levels of serotonin in the body--agitation, hallucinations, fever, sweating, shivering, fast heart rate, muscle stiffness, twitching, loss of coordination, nausea, vomiting, diarrhea. Serious breathing problems may be more likely in older adults and in those who are debilitated or have wasting syndrome or chronic breathing disorders. Common side effects include: dizziness, drowsiness, feeling tired; feelings of extreme happiness or sadness; nausea, vomiting, stomach pain; constipation; or headache. This is not a complete list of side effects and others may occur. Call your doctor for medical advice about side effects. You may report side effects to FDA at 0-225-OOF-0186. What other drugs will affect acetaminophen and oxycodone? You may have breathing problems or withdrawal symptoms if you start or stop taking certain other medicines. Tell your doctor if you also use an antibiotic, antifungal medication, heart or blood pressure medication, seizure medication, or medicine to treat HIV or hepatitis C. Opioid medication can interact with many other drugs and cause dangerous side effects or . Be sure your doctor knows if you also use: cold or allergy medicines, bronchodilator asthma/COPD medication, or a diuretic ('water pill'); medicines for motion sickness, irritable bowel syndrome, or overactive bladder; other opioids--opioid pain medicine or prescription cough medicine; a sedative like Valium--diazepam, alprazolam, lorazepam, Xanax, Klonopin, Versed, and others; drugs that make you sleepy or slow your breathing--a sleeping pill, muscle relaxer, medicine to treat mood disorders or mental illness; drugs that affect serotonin levels in your body--a stimulant, or medicine for depression, Parkinson's disease, migraine headaches, serious infections, or nausea and vomiting. This list is not complete. Other drugs may affect acetaminophen and oxycodone, including prescription and pxbw-wtk-viincci medicines, vitamins, and herbal products. Not all possible interactions are listed here. Where can I get more information? Your doctor or pharmacist can provide more information about acetaminophen and oxycodone. Remember, keep this and all other medicines out of the reach of children, never share your medicines with others, and use this medication only for the indication prescribed. Every effort has been made to ensure that the information provided by [employer]') is accurate, up-to-date, and complete, but no guarantee is made to that effect. Drug information contained herein may be time sensitive. [employer] information has been compiled for use by healthcare practitioners and consumers in the [place] and therefore [employer] does not warrant that uses outside of the [place] are appropriate, unless specifically indicated otherwise. [employer] drug information does not endorse drugs, diagnose patients or recommend therapy. [employer] drug information is an informational resource designed to assist licensed healthcare practitioners in caring for their patients and/or to serve consumers viewing this service as a supplement to, and not a substitute for, the expertise, skill, knowledge and judgment of healthcare practitioners. The absence of a warning for a given drug or drug combination in no way should be construed to indicate that the drug or drug combination is safe, effective or appropriate for any given patient. [facility] does not assume any responsibility for any aspect of healthcare administered with the aid of information [facility] provides. The information contained herein is not intended to cover all possible uses, directions, precautions, warnings, drug interactions, allergic reactions, or adverse effects. If you have questions about the drugs you are taking, check with your doctor, nurse or pharmacist. Copyright 3275-1954 [employer]. Version: 22.. Revision Date: 05/03/2023. Education Materials Understanding a Distal Radius Fracture A fracture is a broken bone. A fracture in the distal radius is a break in the lower end of the radius. This is the larger bone in the forearm. Because the break occurs near the wrist, it is often called a wrist fracture. The bone may be cracked, or it may be broken into 2 or more pieces. The pieces of bone may be lined up or they may have moved out of place. Sometimes, the bone may break through the skin. Nearby nerves, tissues, and joints also may be damaged. Depending on the severity of the fracture, healing may take several months or longer. What causes a distal radius fracture? This type of fracture is most often caused from a fall on an outstretched hand. It can also be caused from a blow, accident, or sports injury. Symptoms of a distal radius fracture Symptoms can include pain, swelling, and bruising. If the bone breaks through the skin, external bleeding can also occur. The wrist may look crooked, deformed, or bent. It may be hard to move or use the arm, wrist, and hand for normal tasks and activities. Treating a distal radius fracture Treatment depends on how serious the fracture is. If needed, the bone is put back into place. This may be done with or without surgery. If surgery is needed, the surgeon may use devices such as pins, plates, or screws to hold the bone together. You may need to wear a splint or cast for a month or longer to protect the bone and keep it in place during healing. Other treatments may be also used to help reduce symptoms or regain function. These include: Cold packs. Putting an ice pack on the injured area may help reduce swelling and pain. Raising the arm and wrist. Keeping the arm and wrist raised above heart level may help reduce swelling. Pain medicines. Taking prescription or yvpq-sbo-eetrbdc pain medicines may help reduce pain and swelling. Exercises. Doing certain exercises at home or with a physical therapist can help restore strength, flexibility, and range of motion in your arm, wrist, and hand. In general, exercises are not started until after the splint or cast is removed. Possible complications of a distal radius fracture These can include: Poor healing of the bone Weakness, stiffness, or loss of range of motion in the arm, wrist, or hand Osteoarthritis in the wrist joint When to call your healthcare provider Call your healthcare provider right away if you have any of these: Fever of 100.4 F (38 C) or higher, or as directed Symptoms that don t get better with treatment, or get worse Numbness, coldness, or swelling in your arm, hand, or fingers Fingernails that turn blue or pollard in color A splint or cast that is damaged or feels too tight or loose New symptoms 2167-7017 [employer] [address] [place] [address]. All rights reserved. This information is not intended as a substitute for professional medical care. Always follow your healthcare professional's instructions. Wrist Fracture, General You have a broken bone (fracture) in your wrist. This may be a small crack or chip in the bone. Or it may be a major break, with the broken parts pushed out of position. Wrist fractures are often treated with a splint or cast. They take about 4 to 6 weeks to heal. Severe injuries may need surgery. Home care Follow these guidelines when caring for yourself at home: Keep your arm elevated to reduce pain and swelling. When sitting or lying down keep your arm above the level of your heart. You can do this by placing your arm on a pillow that rests on your chest or on a pillow at your side. This is most important during the first 2 days (48 hours) after the injury. Put an ice pack on the injured area. Do this for 20 minutes every 1 to 2 hours the first day for pain relief. You can make an ice pack by wrapping a plastic bag of ice cubes in a thin towel. As the ice melts, be careful that the cast or splint doesn t get wet. Continue using the ice pack 3 to 4 times a day for the next 2 days. Then use the ice pack as needed to ease pain and swelling. Keep the cast or splint completely dry at all times. Bathe with your cast or splint out of the water. Protect it with a large plastic bag, rubber-banded or taped at the top end. If a fiberglass cast or splint gets wet, you can dry it with a hairspring truer on a cool setting. You may use acetaminophen or ibuprofen to control pain, unless another pain medicine was prescribed. If you have chronic liver or kidney disease, talk with your healthcare provider before using these medicines. Also talk with your provider if you ve had a stomach ulcer or gastrointestinal bleeding. Don t put creams, lotions, or objects under the cast. Follow-up care Follow up with your healthcare provider as advised. This is to make sure the bone is healing the way it should. If a splint was put on, it may be changed to a cast during your follow-up visit. A cast may need to be changed at 2 to 3 weeks, as the swelling goes down. If X-rays were taken, a radiologist may look at them. You will be told of any new findings that may affect your care. When to seek medical advice Call your healthcare provider right away if any of these occur: The plaster cast or splint becomes wet or soft The cast or splint cracks Bad odor from the cast or wound fluid stains the cast The fiberglass cast or splint stays wet for more than 24 hours Tightness or pain under the cast or splint gets worse Fingers become swollen, cold, blue, numb, or tingly You can t move your fingers Skin around cast becomes red, swollen, or irritated [id number] [employer] [address] [place] [address]. All rights reserved. This information is not intended as a substitute for professional medical care. Always follow your healthcare professional's instructions. Additional Information VACCINATE! IT SAVES LIVES! Members of the community who have not yet received the COVID-19 vaccine and would like to receive it can visit one of [facility] vaccine clinics. There are many vaccine clinic locations within the [facility]. For locations and available times, please visit www.gettheshot.coronavirus.[place].gov/. It is important to note that some COVID mobile vaccine clinics are held outdoors and may be canceled in rainy or stormy conditions. To learn more about pediatric vaccinations (ages 5-11), we invite you to visit the [facility] webpage. [email or web address]/pages/[email or web address]-Mhexy-Grrpcbranmk-Frequently-[email or web address] -Questions.html To learn more about the COVID-19 vaccine, we invite you to visit the CDC website for a list of frequently asked questions. https://www.cdc.gov/coronavirus/2019-n cov/vaccines/faq.html [facility] Patient Portal Access Instructions: Stay connected with your healthcare team and access your personal medical information anytime with the [facility] Patient Portal. If you would like a full copy of your medical records please contact the [facility] Medical Records Department Sunday through Sunday between 8a.m. and 4:30p.m. Please follow the directions below to access the portal: 1.Access the email account you provided upon registration to the [facility].2.Look for an invitation email from [facility].3.Open the email and access the invitation link: Accept Invitation to [facility].Fill in the required dunham to create your account. Sign into www.[employer] with your username and password that you created in the above steps to stay up to date. You can then view a summary of results, a summary of your visits, and the ability to download your summaries to your computer or send the information securely to a physician. Remember that your healthcare information is confidential, so carefully consider who you will allow to register on the [facility] Patient Portal for access to your information. You can also access the [facility] Patient Portal on the [employer]. Simply click on Health Records under Health Data and then click on the [employer] logo. HOW TO SAFELY DISPOSE OF PRESCRIPTION MEDICATIONS Please use one of the following methods to safely dispose of your unused medications. 1.Use a drug disposal kit: the drug disposal pouch allows you to safely discard your old and unused drugs. Ask your nurse to give you one when you are discharged.2.Visit a local take-back location: Many local pharmacies and police departments have programs that collect old and unwanted prescription drugs. Call your local pharmacy or go to http://NewsBasis.Vendobots/3U1Gx9u to find one close to you.3.Make use of household items: Use cat litter or old coffee grounds to dispose medications if other options are not available. Mix your drugs with these household products, seal them in an airtight container and throw it into the garbage. Call [facility]: [phone] to be sure your drugs can be disposed of in this way. Some medicines may require a different approach.4.Never flush your medications down the toilet. IF YOU HAVE BEEN PRESCRIBED AN OPIOIDS FOR PAIN If you have been prescribed an opioid (such as hydrocodone, oxycodone or morphine), it is critical to understand the possible side effects and risks of opioid pain medications. Even when taken as directed, opioids can have several side effects including: Tolerance, meaning you might need to take more of a medication for the same pain relief. Nausea, vomiting and/or constipation. Sleepiness, dizziness, dry mouth, confusion, depression or itching. Physical dependence, meaning you have withdrawal symptoms when a medication is stopped ? this can develop within a few days. KNOW YOUR RESPONSIBILITIES It is important to know exactly how much and how often to take the opioid pain medications you are prescribed. Never take opioids in higher amounts or more often than prescribed. Do not combine opioids with alcohol or other drugs that cause drowsiness, such as benzodiazepines, also known as benzos, including diazepam and alprazolam, muscle relaxants or sleep aids. Never sell or share prescription opioids. This is illegal. Store opioids in a secure place and out of reach of others (including children, family, friends and visitors). The last page(s) of this document has been signed and retained as a CHART COPY Signatures Patient Education Materials Understanding a Distal Radius Fracture Fracture, Wrist, General Medication Leaflets acetaminophen and oxycodone My discharge plan and instructions have been reviewed and explained to me and IBRETT AMANDA K understand my current condition and have read and understand these discharge instructions. I have received a written copy of the plan/instructions. If I have questions, I am aware that I should contact my doctor. 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 HISTORY: ORDERING SYSTEM PROVIDED HISTORY: Reason for Exam: fall FINDINGS: There is a comminuted fracture of the distal radius. There is intra-articular extension. There is impaction and dorsal displacement of the main distal fracture fragment. There is volar angulation of the fracture apex. There is also a relatively nondisplaced fracture of the ulnar styloid. No additional fractures or gross dislocation. No significant degenerative change. There is soft tissue swelling and deformity of the wrist. No unexpected radiopaque foreign body. IMPRESSION: 1. Comminuted, impacted, displaced and angulated fracture of the distal radius. Soft tissue swelling. 2. Relatively nondisplaced ulnar styloid fracture. Interpreted by: Monet Jung MD Preliminary Report By: Monet Jung MD Electronically signed By Monet Jung MD Dictated Date: 06/09/2023 4:55:09 PM Prelim Date: 06/09/2023 4:58:57 PM Sign Date: 06/09/2023 4:58:57 PM Ordering Provider: SARITHA CHASE [facility] Evaluation + Plan note Note Date & Type Note Facility Evaluation + Plan note No data available for this section [facility] Evaluation note Note Date & Type Note Facility Evaluation note [facility] Phone: Hospital Discharge instructions Note Date & Type Note Facility Hospital Discharge instructions No data available for this section [facility] Progress note Note Date & Type Note Facility Progress note No data available for this section [facility] Reason for referral (narrative) Note Date & Type Note Facility Reason for referral (narrative) No reason for referral information available [facility] Work Phone: Summary Purpose Family History Relationship Condition Age at Onset Recorded Date/T hilary Not Specified Diabetes mellitus Unknown Hyperlipidemia Unknown Myocardial infarction Unknown Malignant neoplasm of lung Unknown Hypertension Unknown Disorder of thyroid Unknown No Family History Records Found Advance Directives No Advanced Directives Records FoundNo Advanced Directives Records FoundNo Advanced Directives Records Found Additional Source Comments Patient Care team informatio n (unrecognized section and content) Team Status: Active Member Role/Relationship Status Dates Tequila Hays CONTRACT COORDINATOR, CONTRACT COORDINATOR-Ender Primary Care Provider Active Team Status: Inactive Member Role/Relationship Status Dates Tequila Hays CONTRACT COORDINATOR, CONTRACT COORDINATOR-Ender Primary Care Provider Active Start: April 08, 2025 End: April 08, 2025 JOSEFINA Martinez Attending Provider Active Start: April 08, 2025 End: April 08, 2025 JOSEFINA Martinez Referring Provider Active Start: April 08, 2025 End: April 08, 2025 INFORMATION SOURCE (unrecogn ized section and content) DATE CREATED AUTHOR 09/12/2023 [facility] ([place]) DATE CREATED AUTHOR AUTHOR'S ORGANIZ ATION 06/15/2025 [facility] DATE CREATED AUTHOR AUTHOR'S ORGANIZ ATION 07/17/2025 [facility] Goals (unrecognized section and content) Goals may be documented in a n alternate section FOR RECORDS PERTAINING TO PATIENTS WHO ARE OR HAVE BEEN ENROLLED IN A CHEMICAL DEPENDENCY/SUBSTANCEABUSE PROGRAM, SOME INFORMATION MAY BE OMITTED. This clinical summary was aggregated from multiple sources. Caution should be exercised in using it in the provision of clinical care. This summary normalizes information from multiple sources, and as a consequence, information in this document may materially change the coding, format and clinical context of patient data. In addition, data may be omitted in some cases. CLINICAL DECISIONS SHOULD BE BASED ON THE PRIMARY CLINICAL RECORDS. [facility]. provides no warranty or guarantee of the accuracy or completeness of information in this document.
--- OUTSIDE RECORDS SUMMARY | 2025-07-21 16:34 | XMS RPT_ITS | CCD ---
Author Organization [facility] Care Team Providers Care Mechanical Spreader Operator Name Role Phone LIS DETECTIVE CAPTAIN-PERFORMANCE MANAGEMENT CONSULTANT, TEQUILA Primary Care Physician [phone] SARITHA CHASE DO Attending Unavailable BALTES DETECTIVE CAPTAIN-PERFORMANCE MANAGEMENT CONSULTANT, TEQUILA Primary Care Unavailabl e AMANDA VARMA DO Attending Unavailable BALTES DETECTIVE CAPTAIN-PERFORMANCE MANAGEMENT CONSULTANT, TEQUILA Primary Care Unavailabl e BALTES DETECTIVE CAPTAIN-PERFORMANCE MANAGEMENT CONSULTANT, TEQUILA Primary Care Unavailabl e AMANDA VARMA DO Attending Unavailable Lis THREE DIMENSIONAL MAP MODELER-C, Tequila Primary Care Provider [phone] Anastacio THREE DIMENSIONAL MAP MODELER-C, Jack Attending Provider Anastacio THREE DIMENSIONAL MAP MODELER-CJack Referring Provider BGTES DETECTIVE CAPTAIN-ABIGAIL, TEQUILA Attending Unavailabl e BALTES DETECTIVE CAPTAIN-PERFORMANCE MANAGEMENT CONSULTANT, TEQUILA Primary Care Unavailleif e Tuyet THREE DIMENSIONAL MAP MODELERElizabeth Attending Unavailable Baltes THREE DIMENSIONAL MAP MODELER, Tequila Primary Care Unavailable Baltes THREE DIMENSIONAL MAP MODELER, Tequila Referring Unavailable Jack Chaves Attending Unavailable Jack Chaves Referring Unavailable Lis THREE DIMENSIONAL MAP MODELER, Tequila Primary Care Unavailable Assessment, Health Risk Attending Unavaila ble Lis THREE DIMENSIONAL MAP MODELER, Tequila Primary Care Unavailable Allergies Allergy Classification Reported Allergen(s) Allergy Type Date of Onset Reaction(s) Facility (4 sources) Amoxicillin; Translations: [amoxicillin] Drug Allergy 2 [facility] (3 sources) Sulfamethoxazole / Trimethoprim; Translations: [sulfamethoxazole-tr imethoprim] Drug Allergy [facility] (1 source) Sulfamethoxazole Drug Allergy 2 [facility] (1 source) Trimethoprim Drug Allergy 2 [facility] (1 source) Amoxicillin Drug Allergy 2 [facility] (1 source) Sulfamethoxazole Drug Allergy 2 [facility] (1 source) Trimethoprim Drug Allergy 2 [facility] Medications Current Medications Medication Drug [...] 06-13-2025 TSH Qn 2.75 m[IU]/L Normal 0.36-3.74 [facility] Comment on above: Performed By: #### T #### [facility] [address] [place] [address] Nicotine Screen Bloodon 03-31 COTININE BLOOD <1.0 Normal . [facility] Comment on above: Result Comment: This test was developed and its performance characteristics determined by [facility]. It has not been cleared or approved by the Food and Drug Administration. Cotinine levels greater than 20.0 are consistent with the use of tobacco or tobacco cessation products. Performed at: [address] [id number] [employer] Rep: Delroy Rico MD, Phone: [phone] Performed By: #### L 6523.9417 #### [facility] [address] [place], [place], [address] NICOTINE BLOOD <1.0 Normal . [facility] Comment on above: Result Comment: This test was developed and its performance characteristics determined by [facility]. It has not been cleared or approved by the Food and Drug Administration. Nicotine levels greater than 2.0 are consistent with the use of tobacco or tobacco cessation products. Performed By: #### L 3600.3400 #### [facility] [address] [place], [address] Serum or plasma nicotine jenna surement (mass/volume)Ordered By: Jack Chaves on 04-08-2025 Nicotine [Mass/Vol] <1.0 ug/mL . [facility] Comment on above: This test was develo ped and its performance characteristicsdetermined by [facility]. It has not been cleared orapproved by the Food and Drug Administration.Nicotine levels greater than 2.0 are consistent with theuse of tobacco or tobacco cessation products. CBC-Complete Blood Cnt No Di ffon 11-11-2024 Erythrocyte distribution width (RBC) [Ratio] 11.9 % Normal 11.6-14.6 [facility] Comment on above: Performed By: #### L 501.9985, L500.4100, L100.0500, L500.4050 #### [facility] [address] [place], [address] Hematocrit (Bld) [Volume fraction] 42.0 % Normal 37-47 [facility] Comment on above: Performed By: #### L 501.9985, L500.4100, L100.0500, L500.4050 #### [facility] [address] [place], [address] Hemoglobin (Bld) [Mass/Vol] 14.6 g/dL Normal 12.0-15.0 [facility] Comment on above: Performed By: #### L 501.9985, L500.4100, L100.0500, L500.4050 #### [facility] [address] [place], [address] MCH (RBC) [Entitic mass] 32.2 pg High 27.0-32.0 [facility] Comment on above: Performed By: #### L 501.9985, L500.4100, L100.0500, L500.4050 #### [facility] [address] [place], [address] MCHC (RBC) [Mass/Vol] 34.8 g/dL Normal 32-36 [facility] Comment on above: Performed By: #### L 501.9985, L500.4100, L100.0500, L500.4050 #### [facility] [address] [place], [address] MCV (RBC) [Entitic vol] 92.7 fL Normal 81-99 [facility] Comment on above: Performed By: #### L 501.9985, L500.4100, L100.0500, L500.4050 #### [facility] [address] [place], [address] Platelet mean volume (Bld) [Entitic vol] 10.6 fL Normal 6.2-12.0 [facility] Comment on above: Performed By: #### L 501.9985, L500.4100, L100.0500, L500.4050 #### [facility] [address] [place], [address] Platelets (Bld) [#/Vol] 255 10*3/uL Normal 150-450 [facility] Comment on above: Performed By: #### L 501.9985, L500.4100, L100.0500, L500.4050 #### [facility] [address] [place], [address] RBC (Bld) [#/Vol] 4.53 10*6/uL Normal 4.2-5.4 [facility] Comment on above: Performed By: #### L 501.9985, L500.4100, L100.0500, L500.4050 #### [facility] [address] [place], [address] RDW SD 40.4 fl Normal 35.1-43.9 [facility] Comment on above: Performed By: #### L 501.9985, L500.4100, L100.0500, L500.4050 #### [facility] [address] [place], [address] WBC (Bld) [#/Vol] 6.5 10*3/uL Normal 4.4-11.0 [facility] Comment on above: Performed By: #### L 501.9985, L500.4100, L100.0500, L500.4050 #### [facility] [address] [place], [address] Comprehensive Metabolic Prof ilon 11-11-2024 Albumin [Mass/Vol] 4.3 g/dL Normal 3.2-5.0 [facility] Comment on above: Performed By: #### L 501.9985, L500.4100, L100.0500, L500.4050 #### [facility] [address] [place], [address] Albumin/Globulin [Mass ratio] 1.2 {ratio} Normal 0.9-2.4 [facility] Comment on above: Performed By: #### L 501.9985, L500.4100, L100.0500, L500.4050 #### [facility] [address] [place], [address] ALK P 49 U/L Normal 45-117 [facility] Comment on above: Performed By: #### L 501.9985, L500.4100, L100.0500, L500.4050 #### [facility] [address] [place], [address] ALT [Catalytic activity/Vol] 26 U/L Normal 13-56 [facility] Comment on above: Performed By: #### L 501.9985, L500.4100, L100.0500, L500.4050 #### [facility] [address] [place], [address] AST [Catalytic activity/Vol] 13 U/L Low 15-37 [facility] Comment on above: Performed By: #### L 501.9985, L500.4100, L100.0500, L500.4050 #### [facility] [address] [place], [address] Bilirubin [Mass/Vol] 0.40 mg/dL Normal 0.20-1.00 [facility] Comment on above: Result Comment: For patients on eltrombopag therapy, use of Dimension [place] TBIL is not recommended. Performed By: #### L 501.9985, L500.4100, L100.0500, L500.4050 #### [facility] [address] [place], [address] BUN/CRE 19.1 RATIO Normal 10-20 [facility] Comment on above: Performed By: #### L 501.9985, L500.4100, L100.0500, L500.4050 #### [facility] [address] [place], [address] CA,Total 9.4 mg/dL Normal 8.5-10.1 [facility] Comment on above: Performed By: #### L 501.9985, L500.4100, L100.0500, L500.4050 #### [facility] [address] [place], [address] Chloride [Moles/Vol] 104 mmol/L Normal 98-107 [facility] Comment on above: Performed By: #### L 501.9985, L500.4100, L100.0500, L500.4050 #### [facility] [address] [place], [address] CO2 [Moles/Vol] 26.0 mmol/L Normal 21.0-32.0 [facility] Comment on above: Performed By: #### L 501.9985, L500.4100, L100.0500, L500.4050 #### [facility] [address] [place], [address] Creatinine [Mass/Vol] 0.79 mg/dL Normal 0.55-1.02 [facility] Comment on above: Result Comment: The validity of the calculated GFR GFRAA in patients over 70 years has not been determined. Clinical correlation is essential. Performed By: #### L 501.9985, L500.4100, L100.0500, L500.4050 #### [facility] [address] [place], [address] EST GFR - AA 109 mL/min Normal >60 [facility] Comment on above: Result Comment: Afri can Czech GFR Calc Performed By: #### L 501.9985, L500.4100, L100.0500, L500.4050 #### [facility] [address] [place], [address] GAP 8 Normal 5-15 [facility] Comment on above: Performed By: #### L 501.9985, L500.4100, L100.0500, L500.4050 #### [facility] [address] [place], [address] GFR/1.73 sq M.predicted among non-blacks MDRD (S/P/Bld) [Vol rate/Area] 90 mL/min/{1.73_m2} Normal >60 [facility] Comment on above: Result Comment: Non- GFR Calc Performed By: #### L 501.9985, L500.4100, L100.0500, L500.4050 #### [facility] [address] [place], [address] Globulin (S) [Mass/Vol] 3.5 g/dL Normal 2.2-4.2 [facility] Comment on above: Performed By: #### L 501.9985, L500.4100, L100.0500, L500.4050 #### [facility] [address] [place], [address] Glucose [Mass/Vol] 94 mg/dL Normal 74-106 [facility] Comment on above: Performed By: #### L 501.9985, L500.4100, L100.0500, L500.4050 #### [facility] [address] [place], [address] Potassium [Moles/Vol] 4.4 mmol/L Normal 3.5-5.1 [facility] Comment on above: Performed By: #### L 501.9985, L500.4100, L100.0500, L500.4050 #### [facility] [address] [place], [address] Sodium [Moles/Vol] 138 mmol/L Normal 136-145 [facility] Comment on above: Performed By: #### L 501.9985, L500.4100, L100.0500, L500.4050 #### [facility] [address] [place], [address] T PROT 7.8 g/dL Normal 6.4-8.2 [facility] Comment on above: Performed By: #### L 501.9985, L500.4100, L100.0500, L500.4050 #### [facility] [address] [place], [address] Urea nitrogen [Mass/Vol] 15 mg/dL Normal 7-18 [facility] Comment on above: Performed By: #### L 501.9985, L500.4100, L100.0500, L500.4050 #### [facility] [address] [place], [address] Hemoglobin A1con 11-11-2024 HbA1c (Bld) [Mass fraction] 5.2 % Normal 3.8-5.6 [facility] Comment on above: Result Comment: Norm al < 5.7 % Prediabetic 5.7 - 6.4 % Diabetic >or= 6.5 % Please note range changes. Performed By: #### L 501.9985, L500.4100, L100.0500, L500.4050 #### [facility] [address] [place], [address] Lipid Profileon 11-11-2024 Cholesterol [Mass/Vol] 219 mg/dL High 200 [facility] Comment on above: Result Comment: <200 mg/dL Desirable 200-240 mg/dL Borderline >240 mg/dL High Risk Performed By: #### L 501.9985, L500.4100, L100.0500, L500.4050 #### [facility] [address] [place], [address] Cholesterol in HDL [Mass/Vol] 50 mg/dL Normal [facility] Comment on above: Result Comment: The drugs N-Acetylcysteine and Metamizole may falsely depress this assay. Reference Range HDL <40 mg/dL Low HDL Cholesterol HDL >or= 60 mg/dL High HDL Cholesterol Performed By: #### L 501.9985, L500.4100, L100.0500, L500.4050 #### [facility] [address] [place], [address] Cholesterol in LDL [Mass/Vol] 137 mg/dL High 0-130 [facility] Comment on above: Performed By: #### L 501.9985, L500.4100, L100.0500, L500.4050 #### [facility] [address] [place], [address] Cholesterol in VLDL [Mass/Vol] 32 mg/dL Normal 5-40 [facility] Comment on above: Performed By: #### L 501.9985, L500.4100, L100.0500, L500.4050 #### [facility] [address] [place], [place], [address] Triglyceride [Mass/Vol] 161 mg/dL Normal [facility] Comment on above: Result Comment: The drugs N-Acetylcysteine and Metamizole may falsely depress this assay. Serum Triglycerides Reference Interval Normal <150 mg/dL Borderline high 150 - 199 mg/dL High 200 - 499 mg/dL Very High > or = 500 mg/dL Performed By: #### L 501.9985, L500.4100, L100.0500, L500.4050 #### [facility] [address] [place], [place], [address] CT WRIST W/O CONTRAST RIGHTo n 06-18-2023 [...] 06/18/2023 3:01:34 PM Ordering Provider: AMANDA Sherman [facility] [place] HAND AND WRIST 6 VIEWS GOOD [...] 06/09/2023 4:58:57 PM Ordering Provider: SARITHA Sherman [facility] [place] Vital Signs Date Time Vital Sign Value Performing Clinician Vadim anaya 06-09-2023 17:28-0400 Diastolic Blood Pressure Non-Invasive 86 1 SARITHA CHASE DO [facility] 06-09-2023 17:28-0400 Heart rate 81 /min SARITHA CHASE DO [facility] 06-09-2023 17:28-0400 Respiratory rate 25 /min SARITHA CHASE DO [facility] 06-09-2023 17:28-0400 Systolic Blood Pressure Non-Invasive 124 1 SARITHA CHASE DO [facility] 06-09-2023 16:28-0400 Body temperature 98.06 [degF] SARITHA CHASE DO [facility] 06-09-2023 16:28-0400 Diastolic Blood Pressure Non-Invasive 87 1 SARITHA CHASE DO [facility] 06-09-2023 16:28-0400 Heart rate 77 /min SARITHA CHASE DO [facility] 06-09-2023 16:28-0400 Respiratory rate 26 /min SARITHA CHASE DO [facility] 06-09-2023 16:28-0400 Systolic Blood Pressure Non-Invasive 118 1 SARITHA CHASE DO [facility] Encounters Encounter Date Encounter Type Care Provider Facility Start: 07-21-2025 ambulatory Elizabeth Benz THREE DIMENSIONAL MAP MODELER Facil ity:[facility] Start: 06-13-2025 End: 06-13-2025 ambulatory TEQUILA HAYS DETECTIVE CAPTAIN-PERFORMANCE MANAGEMENT CONSULTANT Facility:[facility] Start: 06-13-2025 End: 06-13-2025 Patient encounter procedure TEQUILA HAYS DETECTIVE CAPTAIN-PERFORMANCE MANAGEMENT CONSULTANT [facility] Start: 04-14-2025 Encounter for genera l adult medical examination without abnormal findings Jackgail Chaves [facility] Start: 04-08-2025 End: 04-08-2025 ambulatory Tequila Hays THREE DIMENSIONAL MAP MODELER-C Work Phone: -Laboratory Specimen Start: 04-08-2025 End: 04-08-2025 Patient encounter procedure Jack Chaves THREE DIMENSIONAL MAP MODELER-C -Laboratory Specimen Work Phone: Start: 04-08-2025 End: 04-08-2025 ambulatory Jack Chaves Facility:[facility] Start: 11-11-2024 ambulatory Health Risk Assessment Facility:[facility] Start: 07-03-2023 End: 09-10-2023 ambulatory TEQUILA HAYS DETECTIVE CAPTAIN-PERFORMANCE MANAGEMENT CONSULTANT Facility:[facility] Start: 06-18-2023 End: 06-19-2023 ambulatory AMANDA VARMA DO Facility:[facility] Start: 06-18-2023 End: 06-18-2023 Patient encounter procedure AMANDA VARMA DO [facility] Start: 06-09-2023 End: 06-09-2023 Emergency department patient visit SARITHA CHASE DO Facility:[facility] Start: 06-09-2023 End: 06-09-2023 Emergency department patient visit SARITHA CHASE DO [facility] Procedures Date Procedure Procedure Detail Performing Clinician Start: 04-08-2025 Cotinine measurement Tequila Hays THREE DIMENSIONAL MAP MODELER-C Work Phone: Comment on above: This test was developed and its performa nce characteristicsdetermined by [facility]. It has not been cleared orapproved by the Food and Drug Administration.Cotinine levels greater than 20.0 are consistent with theuse of tobacco or tobacco cessation products.Performed at: [address] [id number] Director: Delroy Rico MD, Phone: [phone] Start: 06-01-2024 Structure of right wrist (body structure) TEQUILA HAYS DETECTIVE CAPTAIN-PERFORMANCE MANAGEMENT CONSULTANT Comment on above: fx in 7 places, plate placed Start: 01-02-2011 Cholecystectomy SARITHA CHASE DO Comment on above: Dr Willoughby Payers Date Payer Category Payer Private Health Insurance [id number] 2024 Self-pay 2023 Private Health Insurance [id number] 2023 Unknown [id number] 2023 Private Health Insurance [id number] 2011 Unknown [id number] 1992 Unknown [id number] 2.16.8 [id number] 1992 Unknown [id number] 2.16.8 [id number] 1992 Unknown [id number] 2.16.8 [id number] 1992 Unknown [id number] 2.16. [id number] Self-pay [id number] Unknown [id number] Unknown [id number] 2.16.8 [id number] Unknown [id number] 2.16.8 [id number] Unknown [id number] 2.16.8 [id number] Social History Date Type Detail Facility Start: 04-23-2019 Tobacco smoking status Smoker (findi ng) [facility] Start: 1990 Sex Assigned At Female [facility] Start: 12-26-2021 Tobacco smoking stat [facility] Smokes tobacco daily (finding) [facility] Start: 06-10-2025 Tobacco smoking status Ex-smoker (fi nding) [facility] Comment on above: Qut smoking 03/03/2025 Sexual O[facility] Start: 03-26-2019 Sex Female (finding) [facility] Functional Status Date Assessment Result Facility 06-09-2023 Functional Status Independent [facility] 06-09-2023 Functional Status Ambulation in [facility] Mental Status Date Assessment Result Facility 06-09-2023 Mental Status Orientation Oriented x 4 [facility] Clinical Note 06-18-2023 Note Date [...] 06/18/2023 3:01:34 PM Ordering Provider: AMANDA VARMA [facility] Discharge instructions 06-09-2023 Note Date & [...] reduce swelling. Pain medicines. Taking prescription or whdk-jlz-lhoivak pain medicines may help reduce pain and [...] feels too tight or loose New symptoms [phone] [employer]. [address] [place] [address]. All rights reserved. This information is not [...] wet, you can dry it with a supervisor hairspring fabrication on a cool setting. You may use [...] around cast becomes red, swollen, or irritated 5630-1555 [employer]. [address] [place] [address], [place] [address]. All rights reserved. This information is not intended as a substitute for professional medical care. Always follow your healthcare professional's instructions. Follow Up Care 06/09/2023 16:11:01 With:ANGEL DELGADILLO MD, Orthopedic Address: [address] [place] [address] [facility] [place] [phone] When:1-2 days With:TEQUILA HAYS Address: [address] [place] [id number] [phone] When:2-4 days [facility] Clinical Note 06-09-2023 Note Date & Type Note Facility 06-09-2023 Note Discharge Instructions Thank you for allowing [facility] to assist you with your healthcare needs. [...] MD, Orthopedic When Within 1-2 days Where: [address] [place] [address] [facility] [place] [address] [phone] Follow Up with TEQUILA HAYS When Within 2-4 days Where: [address] [place] [id number] [phone] Allergies Septra amoxicillin Medications Please ask your [...] may report side effects to FDA at [phone]. What other drugs will affect acetaminophen and [...] affect acetaminophen and oxycodone, including prescription and rnli-bvk-tifmqti medicines, vitamins, and herbal products. Not all [...] to ensure that the information provided by [employer]. ('[employer]') is accurate, up-to-date, and complete, but no guarantee is made to that effect. Drug information contained herein may be time sensitive. [employer] information has been compiled for use by healthcare practitioners and consumers in the [place] and therefore [employer] does not warrant that uses outside of the [place] are appropriate, unless specifically indicated otherwise. [employer] drug information does not endorse drugs, diagnose patients or recommend therapy. [employer] drug information is an informational resource designed [...] effective or appropriate for any given patient. [facility] does not assume any responsibility for any aspect of healthcare administered with the aid of information [facility] provides. The information contained herein is not intended to cover all possible uses, directions, precautions, warnings, drug interactions, allergic reactions, or adverse effects. If you have questions about the drugs you are taking, check with your doctor, nurse or pharmacist. Copyright 8304-4907 [employer]. Version: 22.. Revision Date: 05/03/2023. Education Materials [...] reduce swelling. Pain medicines. Taking prescription or xiso-vmf-wkijhin pain medicines may help reduce pain and [...] feels too tight or loose New symptoms 3440-9712 [employer]. [address] [place] [address]. All rights reserved. This information is not [...] wet, you can dry it with a supervisor hairspring fabrication on a cool setting. You may use [...] around cast becomes red, swollen, or irritated 1430-1591 [employer]. [address] [place] [address]. All rights reserved. This information is not intended as a substitute for professional medical care. Always follow your healthcare professional's instructions. Additional Information VACCINATE! IT SAVES LIVES! Members of the community who have not yet received the COVID-19 vaccine and would like to receive it can visit one of [facility] vaccine clinics. There are many vaccine clinic locations within the [facility]. For locations and available times, please visit www.gettheshot.coronavirus.[place].gov/. It is important to note that some COVID mobile vaccine clinics are held outdoors and may be canceled in rainy or stormy conditions. To learn more about pediatric vaccinations (ages 5-11), we invite you to visit the [facility] webpage. [email or web address].[email or web address]/pages/2 [email or web address]-Dxjwn-Tunqfbzeuuw-Frequently-Asked -Questions.html To learn more about the COVID-19 vaccine, we invite you to visit the CDC website for a list of frequently asked questions. https://www.cdc.gov/coronavirus/2019-n cov/vaccines/faq.html [facility] Patient [facility] Access Instructions: Stay connected with your healthcare team and access your personal medical information anytime with the [facility] Patient Portal. If you would like a full copy of your medical records please contact the [facility] Department Sunday through Sunday between 8a.m. and 4:30p.m. Please follow the directions below to access the portal: 1.Access the email account you provided upon registration to the [facility].2.Look for an invitation email from [facility].3.Open the email and access the invitation link: Accept Invitation to [facility].Fill in the required dunham to create your account. Sign into [email or web address] with your username and password that you [...] you will allow to register on the [facility] Patient Portal for access to your information. You can also access the [facility] Patient Portal on the [id number]. Simply click on Health Records under Health Data and then click on the [employer] logo. HOW TO SAFELY DISPOSE OF PRESCRIPTION [...] Call your local pharmacy or go to [email or web address] to find one close to you.3.Make use of household items: Use cat litter or old coffee grounds to dispose medications if other options are not available. Mix your drugs with these household products, seal them in an airtight container and throw it into the garbage. Call [facility]: [phone] to be sure your drugs can be [...] aware that I should contact my doctor. Patient/Electrical Timing Device Calibrator Signature: _ Date/Time: Relationship to Patient: Witness Name/Signature: Date/Time: [facility] Clinical Note 06-09-2023 Note Date & [...] 06/09/2023 4:58:57 PM Ordering Provider: SARITHA CHASE [facility] Evaluation + Plan note Note Date & Type Note Facility Evaluation + Plan note No data available for this section [facility] Evaluation note Note Date & Type Note Facility Evaluation note No [facility] Discharge instructions Note Date & Type Note Facility Hospital Discharge instructions No data available for this section [facility] Progress note Note Date & Type Note Facility Progress note No data available for this section [facility] Reason for referral (narrative) Note Date & Type Note Facility Reason for referral (narrative) No reason for referral information available [facility] Work Phone: Summary Purpose Family History [...] Active Member Role/Relationship Status Dates Tequila Hays [employer]DELER, [employer]-Ender Primary Care Provider Active Team Status: Inactive Member Role/Relationship Status Dates Tequila Hays [employer] MODELER, [employer]-Ender Primary Care Provider Active Start: April 08, 2025 End: April 08, 2025 JOSEFINA Martinez Attending Provider Active Start: April 08, 2025 End: April 08, 2025 JOSEFINA Martinez Referring Provider Active Start: April 08, 2025 End: April 08, 2025 INFORMATION SOURCE (unrecogn ized section and content) DATE CREATED AUTHOR 09/12/2023 [facility] ([place]) DATE CREATED AUTHOR AUTHOR'S ORGANIZ ATION 06/15/2025 [facility] DATE CREATED AUTHOR AUTHOR'S ORGANIZ ATION 07/17/2025 [facility] Goals (unrecognized section and content) Goals may [...] BE BASED ON THE PRIMARY CLINICAL RECORDS. [employer] [facility]. provides no warranty or guarantee of the accuracy or completeness of information in this document.
[2025-07-27 15:08] LABS: HPV APTIMA, High Risk Negative (Negative)
== END | disposition home or self-care (01) ==
PROVIDERS: PCP Nurse Practitioner Primary Care; Referring Provider Nurse Practitioner Women's Health; Visit Provider Nurse Practitioner Women's Health
DX: Z12.4 Encounter for screening for malignant neoplasm of cervix (principal)
CPT/HCPCS: 87624; 88175; G0145